=== PATIENT | female | born 1985 | race African-American/Black ===

== ENCOUNTER 2016-09-15 14:14 | Emergency (ER) | payer SELFPAY ==
--- NOTE | 2016-09-15 14:38 | ER Document Report ---
ED Medical Screen (RME) - General Stated Complaint: ABDOMINAL PAIN Mode of Arrival: Ambulatory Information source: Patient Notes: 30 y/o F presents to ED c/o lower abd/pelvic cramping, urinary frequency, and lower back pain intermittently over the last 2 weeks. States LMP was 08/13/16 and is usually regular. Denies fever, dysuria or vaginal discharge. TRAVEL OUTSIDE OF THE [place] IN LAST 30 DAYS: No - Related Data Allergies/Adverse Reactions: iodine [Iodine] Allergy (Verified 04/23/15 12:44) latex [Latex] Allergy (Verified 04/23/15 12:44) Past Medical History - Past Medical History Cardiac Medical History: Denies: Hx Coronary Artery Disease, Hx Heart Attack, Hx Hypertension Pulmonary Medical History: Denies: Hx Asthma, Hx Bronchitis, Hx COPD, Hx Pneumonia Neurological Medical History: Denies: Hx Cerebrovascular Accident, Hx Seizures Musculoskeltal Medical History: Denies Hx Arthritis - Immunizations Immunizations up to date: Yes Hx Diphtheria, Pertussis, Tetanus Vaccination: No Physical Exam - General General appearance: Appears well, Alert In distress: None - Respiratory Respiratory status: No respiratory distress
[2016-09-15 15:13] LABS: AMORPHOUS SEDIMENT,URINE TRACE /HPF; APPEARANCE,URINE CLOUDY; BILIRUBIN,URINE NEGATIVE (NEGATIVE); GLUCOSE, URINE NEGATIVE (NEGATIVE); KETONES,URINE TRACE mg/dL (NEGATIVE); LEUKOCYTE ESTERASE,URINE NEGATIVE (NEGATIVE); NITRITE,URINE NEGATIVE (NEGATIVE); PROTEIN,URINE NEGATIVE (NEGATIVE); URINE SPECIFIC GRAVITY 1.011
--- NOTE | 2016-09-15 15:53 | ER Document Report ---
ED GI/ - General Chief Complaint: Abdominal Pain Stated Complaint: ABDOMINAL PAIN Mode of Arrival: Ambulatory Information source: Patient Notes: Patient reports that she is currently a week late on her menstrual cycle. Patient does report some urinary frequency but denies any dysuria. Patient denies any vaginal discharge. Patient does report lower pelvic cramping and low back pain. Patient does report recent new sexual partner. Patient is concerned that she may be . TRAVEL OUTSIDE OF THE [place] IN LAST 30 DAYS: No - HPI Patient complains to provider of: Pelvic pain. No: Urinary retention, Vaginal bleeding, Vaginal discharge Onset: Other - Late on menstrual cycle 1 week Quality of pain: Cramping Pain Level: 2 Location: Pelvis Vaginal bleeding (Compared to normal period): None Sexual history: Active, New partner, Unprotected intercourse Associated symptoms: Urinary frequency. denies: Dysuria, Fever, Loss of appetite, Nausea, Urinary hesitancy Exacerbated by: Denies Relieved by: Denies Similar symptoms previously: No - Related Data Allergies/Adverse Reactions: iodine [Iodine] Allergy (Verified 09/15/16 14:36) latex [Latex] Allergy (Verified 09/15/16 14:36) Past Medical History - General Information source: Patient Last Menstrual Period: 08/13/2016 - Social History Smoking Status: Never Smoker Chew tobacco use (# tins/day): No Frequency of alcohol use: None Drug Abuse: None Occupation: [employer] Family History: Reviewed & Not Pertinent Patient has suicidal ideation: No Patient has homicidal ideation: No - Medical History Medical History: Negative - Past Medical History Cardiac Medical History: Denies: Hx Coronary Artery Disease, Hx Heart Attack, Hx Hypertension Pulmonary Medical History: Denies: Hx Asthma, Hx Bronchitis, Hx COPD, Hx Pneumonia Neurological Medical History: Denies: Hx Cerebrovascular Accident, Hx Seizures Renal/ Medical History: Denies: Hx Peritoneal Dialysis Musculoskeltal Medical History: Denies Hx Arthritis Past Surgical History: Reports: Hx Dilation and Curettage - Immunizations Immunizations up to date: Yes Hx Diphtheria, Pertussis, Tetanus Vaccination: No Review of Systems - Review of Systems Constitutional: No symptoms reported. denies: Diaphoresis, Fever EENT: No symptoms reported Cardiovascular: No symptoms reported Respiratory: No symptoms reported Gastrointestinal: Abdominal pain - Lower pelvic. denies: Vomiting Genitourinary: Frequency. denies: Dysuria Female Genitourinary: Irregular period. denies: Vaginal discharge, Vaginal bleeding Musculoskeletal: Back pain Skin: No symptoms reported Hematologic/Lymphatic: No symptoms reported Neurological/Psychological: No symptoms reported Physical Exam - General General appearance: Appears well, Alert In distress: None - HEENT Head: Normocephalic, Atraumatic Eyes: Normal Nasal: Normal Mouth/Lips: Normal Mucous membranes: Normal Neck: Normal, Supple. No: Lymphadenopathy - Respiratory Respiratory status: No respiratory distress Chest status: Nontender Breath sounds: Normal. No: Rales, Rhonchi, Stridor, Wheezing Chest palpation: Normal - Cardiovascular Rhythm: Regular Heart sounds: S1 appreciated, S2 appreciated Murmur: No - Abdominal Inspection: Normal Distension: No distension Bowel sounds: Normal Tenderness: Tender - Lower pelvic Organomegaly: No organomegaly - Genitourinary External exam: Normal Speculum exam: Cervix closed. No: Vaginal discharge Vaginal bleeding: Mild Bimanuel exam: Other - mild uterine tenderness. No: Adnexal mass - Back Back: Normal, Nontender. No: CVA tenderness, Vertebra tenderness - Extremities General upper extremity: Normal inspection, Normal ROM General lower extremity: Normal inspection, Normal ROM - Neurological Neuro grossly intact: Yes Cognition: Normal Sharif Coma Scale Eye Opening: Spontaneous Cora Coma Scale Verbal: Oriented Cora Coma Scale Motor: Obeys Commands Sharif Coma Scale Total: 15 - Psychological Associated symptoms: Normal affect, Normal mood - Skin Skin Temperature: Warm Skin Moisture: Dry Skin Color: Normal Course - Laboratory Laboratory results interpreted by me: 09/15/16 14:40 Urine Ketones TRACE H Urine Urobilinogen 2.0 H Urine Ascorbic Acid 20 H 09/15/16 18:13 Labs- Entire Visit 09/15/16 09/15/16 09/15/16 14:40 16:10 16:10 Urine Color YELLOW Urine Appearance CLOUDY Urine pH 7.0 Ur Specific [place] 1.011 Urine Protein NEGATIVE Urine Glucose (UA) NEGATIVE Urine Ketones TRACE H Urine Blood NEGATIVE Urine Nitrite NEGATIVE Urine Bilirubin NEGATIVE Urine Urobilinogen 2.0 H Ur Leukocyte Esterase NEGATIVE Urine WBC (Auto) 0 Urine RBC (Auto) 3 Squamous Epi Cells Auto 3 Amorphous Sediment Auto TRACE Urine Mucus (Auto) RARE Urine Ascorbic Acid 20 H Urine HCG, Qual NEGATIVE Bacteria (Wet Prep) 3+ BACTERIA SEEN Trichomonas (Wet Prep) NO TRICHOMONAS SEEN Vaginal WBC FEW WBCS SEEN Vaginal RBC 3+ RBCS SEEN Vaginal Yeast NO YEAST SEEN Chlamydia DNA (PCR) NOT DETECTED N.gonorrhoeae DNA (PCR) NOT DETECTED Discharge - Discharge Clinical Impression: Dysmenorrhea Condition: Stable Disposition: HOME, SELF-CARE Instructions: Anti-Inflammatory Medication ([facility]), Dysmenorrhea ([facility]) Additional Instructions: Return immediately for any new or worsening symptoms Followup with your primary care provider, call tomorrow to make a followup appointment Cultures are pending, we will call if you need any different treatment Prescriptions: Fluconazole [Diflucan] 150 mg PO ONCE PRN #1 tablet PRN Reason: Naproxen [Naprosyn 250 Nmg Tablet] 1 tab PO BID #14 tablet Forms: Return to Work Referrals: [facility] [Provider Group] - Follow up as needed
[2016-09-15] MEDS ORDERED: AZITHROMYCIN 250 MG TABLET PO ONE (16:13)
[2016-09-15] MEDS ORDERED: LIDOCAINE 1% INJ-PF (10 MG/ML) 30 ML SDV INJ ONE (16:13)
[2016-09-15] MEDS ORDERED: CEFTRIAXONE INJ 250 MG VIAL IM ONE (16:13)
[2016-09-15] MEDS ORDERED: ONDANSETRON 4 MG TAB.RAPDIS PO ONE (16:52)
[2016-09-15 17:56] LABS: CHLAM PCR NOT DETECTED (NOT DETECT)
== END 2016-09-15 17:00 | disposition home or self-care (01) ==
LOC: ER 14:14
DX: N94.6 Dysmenorrhea, unspecified (principal); R10.9 Unspecified abdominal pain; R35.0 Frequency of micturition; R10.2 Pelvic and perineal pain; M54.5 Low back pain
CPT/HCPCS: 99284; 96372; 87210; 81025; 81001; 87491; 87591; S0119; J3490; J0696

== ENCOUNTER 2016-10-13 13:12 | Emergency (ER) | payer SELFPAY ==
[2016-10-13 13:34] VITALS: BP 113/72
--- NOTE | 2016-10-13 13:55 | ER Document Report ---
ED Medical Screen (RME) - General Stated Complaint: ABDOMINAL PAIN Mode of Arrival: Ambulatory Information source: Patient Notes: She presents with vaginal discharge swelling for one week that smells funny.. Also rlq pain for 3-4 days and BANERJEE Thursday. Denies f/v/d. Denies pmh. Pt reports eating/drinking ok I have greeted and performed a rapid initial assessment of this patient. A comprehensive ED assessment and evaluation of the patient, analysis of test results and completion of the medical decision making process will be conducted by additional ED providers. TRAVEL OUTSIDE OF THE [place] IN LAST 30 DAYS: No - Related Data Allergies/Adverse Reactions: iodine [Iodine] Allergy (Verified 10/13/16 13:54) latex [Latex] Allergy (Verified 10/13/16 13:54) Past Medical History - Past Medical History Cardiac Medical History: Denies: Hx Coronary Artery Disease, Hx Heart Attack, Hx Hypertension Pulmonary Medical History: Denies: Hx Asthma, Hx Bronchitis, Hx COPD, Hx Pneumonia Neurological Medical History: Denies: Hx Cerebrovascular Accident, Hx Seizures Renal/ Medical History: Denies: Hx Peritoneal Dialysis Musculoskeltal Medical History: Denies Hx Arthritis Past Surgical History: Reports: Hx Dilation and Curettage, Hx Tubal Ligation - Immunizations Immunizations up to date: Yes Hx Diphtheria, Pertussis, Tetanus Vaccination: No Physical Exam - Vital signs Vitals: Temp Pulse Resp BP Pulse Ox 98.6 F 85 16 113/72 99 10/13/16 13:32 10/13/16 13:32 10/13/16 13:32 10/13/16 13:32 10/13/16 13:32 Course - Vital Signs Vital signs: Temp Pulse Resp BP Pulse Ox 98.6 F 85 16 113/72 99 10/13/16 13:32 10/13/16 13:32 10/13/16 13:32 10/13/16 13:32 10/13/16 13:32
[2016-10-13 14:56] LABS: ABSOLUTE BASOPHILS # (AUTO) 0.1 10^3/uL (0.0-0.2); ABSOLUTE EOSINOPHILS # (AUTO) 0.2 10^3/uL (0.0-0.6); ABSOLUTE MONOCYTES (AUTO) 0.5 10^3/uL (0.1-1.4); ABSOLUTE NEUT (AUTO) 2.9 10^3/uL (1.7-8.2); BASOPHILS % (AUTO) 1.3 % (0-2); EOSINOPHILS % (AUTO) 3.3 % (0-6); HEMATOCRIT 39.5 % (36.0-47.0); HEMOGLOBIN 13.4 g/dL (12.0-15.5); HGB HCT DIFFERENCE 0.7; LYMPHOCYTES % (AUTO) 22.3 % (13-45); MEAN CORPUSCULAR HEMOGLOBIN 32.7 pg (27.0-33.4); MEAN CORPUSCULAR HGB CONC 33.9 g/dL (32.0-36.0); MEAN CORPUSCULAR VOLUME 96 fl (80-97); MONOCYTES % (AUTO) 10.9 % (3-13); RED CELL DISTRIBUTION WIDTH 12.7 % (11.5-14.0); SEGMENTED NEUTROPHILS % (AUTO) 62.2 % (42-78); WHITE BLOOD COUNT 4.6 10^3/uL (4.0-10.5)
[2016-10-13 15:03] LABS: APPEARANCE,URINE SLIGHTLY-CLOUDY; BILIRUBIN,URINE NEGATIVE (NEGATIVE); GLUCOSE, URINE NEGATIVE (NEGATIVE); KETONES,URINE 20 mg/dL (NEGATIVE); LEUKOCYTE ESTERASE,URINE NEGATIVE (NEGATIVE); NITRITE,URINE NEGATIVE (NEGATIVE); PROTEIN,URINE NEGATIVE (NEGATIVE); URINE SPECIFIC GRAVITY 1.023; UROBILINOGEN,URINE NEGATIVE mg/dL (<2.0)
[2016-10-13 15:23] LABS: ALANINE AMINOTRANSFERASE 26 U/L (9-52); ALBUMIN 4.7 g/dL (3.5-5.0); ALKALINE PHOSPHATASE 44 U/L (38-126); ANION GAP 13 (5-19); ASPARTATE AMINO TRANSFERASE 24 U/L (14-36); BILIRUBIN,DIRECT 0.1 mg/dL (0.0-0.4); BILIRUBIN,TOTAL 0.8 mg/dL (0.2-1.3); BLOOD UREA NITROGEN 9 mg/dL (7-20); CALCIUM 10.1 mg/dL (8.4-10.2); CARBON DIOXIDE 28 mmol/L (22-30); CHLORIDE 103 mmol/L (98-107); CREATININE RESULT 0.63 mg/dL (0.52-1.25); GLUCOSE 104 mg/dL (75-110); POTASSIUM 3.9 mmol/L (3.6-5.0); SODIUM 144.2 mmol/L (137-145); TOTAL PROTEIN 7.6 g/dL (6.3-8.2)
--- NOTE | 2016-10-13 16:22 | ER Document Report ---
ED GI/ - General Chief Complaint: Vaginal Discharge Stated Complaint: ABDOMINAL PAIN Mode of Arrival: Ambulatory Notes: Patient is a 30-year-old female presents emergency Department complaining of vaginal discharge for one week. Patient states that it is thick, white discharge with occasional fishy odor. Patient states that she is having unprotected sex with a boyfriend but she is concerned that he is cheating on her. She would like to be evaluated for an STD today as well. Patient states that she does have a history of yeast infections but this one is different in terms of odor. Patient LMP was Sep 15 2016. Today she admits to pubic pain worse during intercourse. She denies any vaginal itching, burning, pyuria, dysuria, hematuria, urinary frequency or urgency. Denies any past medical or past surgical history. TRAVEL OUTSIDE OF THE [place] IN LAST 30 DAYS: No - Related Data Allergies/Adverse Reactions: iodine [Iodine] Allergy (Verified 10/13/16 13:54) latex [Latex] Allergy (Verified 10/13/16 13:54) Past Medical History - General Information source: Patient - Social History Smoking Status: Never Smoker Family History: Reviewed & Not Pertinent Patient has suicidal ideation: No Patient has homicidal ideation: No - Past Medical History Cardiac Medical History: Denies: Hx Coronary Artery Disease, Hx Heart Attack, Hx Hypertension Pulmonary Medical History: Denies: Hx Asthma, Hx Bronchitis, Hx COPD, Hx Pneumonia Neurological Medical History: Denies: Hx Cerebrovascular Accident, Hx Seizures Renal/ Medical History: Denies: Hx Peritoneal Dialysis Musculoskeltal Medical History: Denies Hx Arthritis Past Surgical History: Reports: Hx Dilation and Curettage, Hx Tubal Ligation - Immunizations Immunizations up to date: Yes Hx Diphtheria, Pertussis, Tetanus Vaccination: No Review of Systems - Review of Systems Constitutional: No symptoms reported Gastrointestinal: No symptoms reported Genitourinary: See HPI Female Genitourinary: See HPI Musculoskeletal: No symptoms reported -: Yes All other systems reviewed and negative Physical Exam - Vital signs Vitals: Temp Pulse Resp BP Pulse Ox 98.6 F 85 16 113/72 99 10/13/16 13:32 10/13/16 13:32 10/13/16 13:32 10/13/16 13:32 10/13/16 13:32 - Notes Notes: PHYSICAL EXAM GENERAL: Alert, interacts well. HEAD: Normocephalic, atraumatic. EYES: Pupils equal, round, and reactive to light. Extraocular movements intact. ENT: Oral mucosa moist, tongue midline. NECK: Full range of motion. Supple. Trachea midline. LUNGS: Clear to auscultation bilaterally, no wheezes, rales, or rhonchi. No respiratory distress. HEART: Regular rate and rhythm. No murmurs, gallops, or rubs. ABDOMEN: Soft, nondistended, nontender. No guarding, rebound, or rigidity.. Bowel sounds present in all 4 quadrants. FEMALE : Normal external exam. No evidence of lesions, lacerations, bruising or vesicles. Speculum exam normal cervix closed. Moderate vaginal discharge with odor. No evidence of lesions. No vaginal bleeding. Bimanual exam normal no cervical motion tenderness. No adnexal mass or adnexal tenderness. EXTREMITIES: Moves all 4 extremities spontaneously. No edema, radial and dorsalis pedis pulses 2/4 bilaterally. No cyanosis. NEUROLOGICAL: Alert and oriented x4. Normal speech. PSYCH: Normal affect, normal mood. SKIN: Warm, dry, normal turgor. No rashes or lesions noted. Course - Re-evaluation Re-evalutation: 10/13/16 22:53 Patient is a 30-year-old female sits emergency department vaginal discharge. Wet mount shows bacteria no evidence of trichomonas or yeast, negative for chlamydia and gonorrhea. Patient was discharged home with by mouth antibiotics for bacterial vaginosis and instruction to follow up with [employer]. - Vital Signs Vital signs: Temp Pulse Resp BP Pulse Ox 98.6 F 85 16 113/72 99 10/13/16 13:32 10/13/16 13:32 10/13/16 13:32 10/13/16 13:32 10/13/16 13:32 - Laboratory Result Diagrams: 10/13/16 14:40 10/13/16 14:40 Laboratory results interpreted by me: 10/13/16 14:40 Urine Ketones 20 H Urine Ascorbic Acid 40 H Discharge - Discharge Clinical Impression: Vaginal discharge Condition: Good Disposition: HOME, SELF-CARE Additional Instructions: VAGINITIS: Your exam shows that you have vaginitis, a vaginal infection. The infection can be caused by a many different organisms, including trichomonas or Gardnerella. The usual symptoms are vaginal irritation and discharge. The treatment is usually antibiotics such as Flagyl. Laboratory tests can determine which germ is responsible. Use the medication as prescribed. Because this infection can be transmitted sexually, your sexual partner may need to be checked and treated also. If your physician has not discussed this with you, please check before resuming sexual relations. If a culture shows gonorrhea or chlamydia, the infection must be reported to the health department. Call the doctor if you develop pelvic pain, fever, or problems with urination, or if you don't improve as expected. VAGINOSIS, BACTERIAL: Your exam shows you have bacterial vaginosis. This condition is due to an overgrowth of bacteria in the vagina. Symptoms may include vaginal itching or pain, a smelly discharge, and sometimes burning with urination. Normally this is not transmitted by sexual contact. Vaginosis can be treated with oral or topical antibiotics. Metronidazole ( Flagyl) pills are usually effective. Topical vaginal creams include Cleocin and Metro-Gel. You should avoid sexual contact until your symptoms are all better. Call the doctor if you develop pelvic pain, fever, or problems with urination, or if you don't improve as expected. ANTIBIOTIC THERAPY: You have been given an antibiotic prescription. It's important that you take all the medication, unless instructed otherwise by your physician. Failure to complete the entire course can result in relapse of your condition. Common side effects of antibiotics include nausea, intestinal cramping, or diarrhea. Women may develop vaginal yeast infections, and babies can get yeast (thrush) in the mouth following the use of antibiotics. Contact your physician if you develop significant side effects from this medication. Allergy to this antibiotic can result in hives, wheezing, faintness, or itching. If symptoms of allergy occur, stop the medication and call the doctor. METRONIDAZOLE: Metronidazole (Flagyl) has been prescribed. This medication is used to kill a type of bacteria called anaerobes, and protozoan parasites such as trichomonas and Giardia. Flagyl often causes a metallic taste in the mouth and mild nausea. Do not use alcohol in any form with Flagyl (including alcohol in medication elixirs). Flagyl interacts with alcohol to cause flushing, palpitations, headache, stomach cramps, and vomiting. Do not use Flagyl if you are taking Antabuse (disulfiram). Call the doctor at once if you develop rash, shortness of breath, itching, or lightheadedness. FOLLOW-UP CARE: If you have been referred to a physician for follow-up care, call the physician s office for an appointment as you were instructed or within the next two days. If you experience worsening or a significant change in your symptoms, notify the physician immediately or return to the Emergency Department at any time for re-evaluation. Prescriptions: Metronidazole [Flagyl 500 mg Tablet] 500 mg PO BID #14 tablet Referrals: JASE VARELA MD [ACTIVE STAFF] - Follow up as needed
[2016-10-13 18:04] LABS: CHLAM PCR NOT DETECTED (NOT DETECT)
== END 2016-10-13 17:21 | disposition home or self-care (01) ==
LOC: ER 13:12
DX: N76.0 Acute vaginitis (principal); B96.89 Other specified bacterial agents as the cause of diseases classified elsewhere; Z91.040 Latex allergy status
CPT/HCPCS: 36415; 80053; 81001; 84703; 85025; 87210; 87491; 87591; 99283

== ENCOUNTER 2016-10-25 15:24 | Emergency (ER) | payer SELFPAY ==
[2016-10-25 15:34] VITALS: BP 116/67
--- NOTE | 2016-10-25 16:25 | ER Document Report ---
ED General - General Chief Complaint: Other Stated Complaint: SORES ON LIPS Mode of Arrival: Ambulatory Information source: Patient Notes: Patient is 30 year old female who presents with sores to her right side of bottom lip. She states that started yesterday but denies any drainage or bleeding from them. She reports history of the same 2 years ago and was treated with anti-viral cream which made completely cleared it in one day. She endorses recent abx use for bacterial vaginosis. TRAVEL OUTSIDE OF THE [place] IN LAST 30 DAYS: No - Related Data Allergies/Adverse Reactions: iodine [Iodine] Allergy (Verified 10/25/16 15:33) latex [Latex] Allergy (Verified 10/25/16 15:33) Past Medical History - Social History Smoking Status: Unknown if Ever Smoked Family History: Reviewed & Not Pertinent Patient has suicidal ideation: No Patient has homicidal ideation: No - Past Medical History Cardiac Medical History: Denies: Hx Coronary Artery Disease, Hx Heart Attack, Hx Hypertension Pulmonary Medical History: Denies: Hx Asthma, Hx Bronchitis, Hx COPD, Hx Pneumonia Neurological Medical History: Denies: Hx Cerebrovascular Accident, Hx Seizures Renal/ Medical History: Denies: Hx Peritoneal Dialysis Musculoskeltal Medical History: Denies Hx Arthritis Past Surgical History: Reports: Hx Dilation and Curettage, Hx Tubal Ligation - Immunizations Immunizations up to date: Yes Hx Diphtheria, Pertussis, Tetanus Vaccination: No Review of Systems - Review of Systems Constitutional: See HPI EENT: See HPI Cardiovascular: No symptoms reported Respiratory: No symptoms reported Gastrointestinal: No symptoms reported Genitourinary: No symptoms reported Female Genitourinary: No symptoms reported Musculoskeletal: No symptoms reported Skin: No symptoms reported Hematologic/Lymphatic: No symptoms reported Neurological/Psychological: No symptoms reported Physical Exam - Vital signs Vitals: Temp Pulse Resp BP Pulse Ox 98.2 F 79 16 116/67 98 10/25/16 15:33 10/25/16 15:33 10/25/16 15:33 10/25/16 15:33 10/25/16 15:33 Interpretation: Normal - Notes Notes: PHYSICAL EXAM: CONSTITUTIONAL: Alert and oriented, well-appearing and in no acute distress. HENT: Normocephalic, atraumatic. Oropharynx clear without erythema, tonsilar exudate or malocclusion. Trachea midline. Uvula midline. Moist mucous membranes. 2 oval ulcers with latham base noted to lower lip consistent with aphthous ulcers. EYES: Pupils equal round and reactive to light, EOM intact. Sclera anicteric, conjunctiva are normal. No entrapment. NECK: supple without lymphadenopathy. ROM intact. HEART: Regular rate and rhythm without murmurs. LUNGS: CTAB and equal. No wheezes, rales or rhonchi. EXTREMITIES: Normal range of motion, no pitting edema. No cyanosis. Cap Refill < 3 seconds. SKIN: Warm and dry. Normal turgor. No rashes or lesions noted. Course - Re-evaluation Re-evalutation: 10/25/16 16:20 Patient seen and examined. No respiratory distress, no angioedema, patient speaking in full sentences without difficulty. Exam consistent with aphthous ulcers. Will treat with valacyclovir. At this time, will discharge with return precautions and follow-up recommendations. Verbal discharge instructions given at the bedside and opportunity for questions given. Medication warnings reviewed. Patient is in agreement with this plan and has verbalized understanding of return precautions and the need for primary care follow-up in the next 24-72 hours. - Vital Signs Vital signs: Temp Pulse Resp BP Pulse Ox 98.2 F 79 16 116/67 98 10/25/16 15:33 10/25/16 15:33 10/25/16 15:33 10/25/16 15:33 10/25/16 15:33 Discharge - Discharge Clinical Impression: Cold sore Condition: Good Disposition: HOME, SELF-CARE Additional Instructions: Mouth Sores Sores in the mouth can have a variety of causes. They can occur due to allergy, infection, injury, or medicine side effects. When due to infection by a virus (aphthous stomatitis), the sores are contagious. More ulcerations will appear over a few days, and complete healing may take 10 to 14 days. Treatment usually is just local care to decrease discomfort. Antibiotics are not helpful in most cases. Local anesthetic gels or sprays (Anbesol, Orajel, Chloraseptic) may be used. If the pain is severe, stronger topical medication can be prescribed. Where sensitivity to food is suspected as a possible cause, cortisone medication may be prescribed in a special oral preparation. Occasionally, a sore may require cauterization to control the pain. Call the doctor or return at once if you develop major swelling or increasing pain, or you feel increasingly ill. Prescriptions: Valacyclovir HCl [Valacyclovir] 2 g PO Q12H #4 tablet
== END 2016-10-25 16:30 | disposition home or self-care (01) ==
LOC: ER 15:24
DX: B00.1 Herpesviral vesicular dermatitis (principal); Z91.040 Latex allergy status
CPT/HCPCS: 99283

== ENCOUNTER 2016-12-01 13:26 | Emergency (ER) | payer SELFPAY ==
[2016-12-01 13:50] VITALS: BP 120/70
--- NOTE | 2016-12-01 14:18 | ER Document Report ---
ED Medical Screen (RME) - General Mode of Arrival: Ambulatory Information source: Patient TRAVEL OUTSIDE OF THE [place] IN LAST 30 DAYS: No - HPI Similar symptoms previously: No Recently seen / treated by doctor: No - General Chief Complaint: Vaginal Pain Stated Complaint: VAGINAL SWELLING, PAIN Time Seen by Provider: 12/01/16 14:12 Notes: Pt presents today with complaints of vaginal discomfort beginning three days ago. Pt complains of labia swelling as well. Pt states she feels like it is "swollen down there, it feels like there are cuts down there but there aren't". Pt states she thought it was a yeast infection, but Monistat seemed to make her symptoms worse. (TAMIR KIRKPATRICK) - Related Data Allergies/Adverse Reactions: iodine [Iodine] Allergy (Verified 12/01/16 13:46) latex [Latex] Allergy (Verified 12/01/16 13:46) Past Medical History - Past Medical History Cardiac Medical History: Denies: Hx Coronary Artery Disease, Hx Heart Attack, Hx Hypertension Pulmonary Medical History: Denies: Hx Asthma, Hx Bronchitis, Hx COPD, Hx Pneumonia Neurological Medical History: Denies: Hx Cerebrovascular Accident, Hx Seizures Renal/ Medical History: Denies: Hx Peritoneal Dialysis Musculoskeltal Medical History: Denies Hx Arthritis Past Surgical History: Reports: Hx Dilation and Curettage, Hx Tubal Ligation - Immunizations Immunizations up to date: Yes Hx Diphtheria, Pertussis, Tetanus Vaccination: No Review of Systems - Review of Systems Female Genitourinary: See HPI, Other - vaginal irritation Physical Exam - Respiratory Respiratory status: No respiratory distress - Abdominal Inspection: Normal Tenderness: Nontender Course - Re-evaluation Re-evalutation: 12/01/16 14:43 I personally performed the services described in the documentation, reviewed and edited the documentation which was dictated to the scribe in my presence, and it accurately records my words and actions. (ARIS CAMARENA) - Vital Signs Vital signs: Temp Pulse Resp BP Pulse Ox 98.9 F 91 18 120/70 97 12/01/16 13:46 12/01/16 13:46 12/01/16 13:46 12/01/16 13:46 12/01/16 13:46 Scribe Documentation - Scribe Written by Scribe:: Collette Rock, 12/01/2016 1433 acting as scribe for :: Shiela
[2016-12-01 15:00] LABS: APPEARANCE,URINE CLEAR; BILIRUBIN,URINE NEGATIVE (NEGATIVE); GLUCOSE, URINE NEGATIVE (NEGATIVE); KETONES,URINE NEGATIVE (NEGATIVE); LEUKOCYTE ESTERASE,URINE SMALL (NEGATIVE); NITRITE,URINE NEGATIVE (NEGATIVE); PROTEIN,URINE NEGATIVE (NEGATIVE); URINE SPECIFIC GRAVITY 1.026; UROBILINOGEN,URINE NEGATIVE mg/dL (<2.0)
[2016-12-01] MEDS ORDERED: FLUCONAZOLE 100 MG TABLET PO ONE (15:09)
--- NOTE | 2016-12-01 15:12 | ER Document Report ---
ED General - General Chief Complaint: Vaginal Pain Stated Complaint: VAGINAL SWELLING, PAIN Time Seen by Provider: 12/01/16 14:12 Mode of Arrival: Ambulatory Information source: Patient TRAVEL OUTSIDE OF THE [place] IN LAST 30 DAYS: No - HPI Notes: 30-year-old female presents with vaginal burning and itching and sensation of swelling. She had severe itching had been using multiple rounds of vinegar and water, Monistat 1, Azo pills and hemorrhoidal creams but has had continued burning and discharge for at least 3 or 4 days now. Denies abdominal pain or other symptoms otherwise. She does admit to scratching due to the pruritus and reports possible excoriations. No fever or urinary symptoms. - Related Data Allergies/Adverse Reactions: iodine [Iodine] Allergy (Verified 12/01/16 13:46) latex [Latex] Allergy (Verified 12/01/16 13:46) Past Medical History - General Information source: Patient - Social History Smoking Status: Current Every Day Smoker Chew tobacco use (# tins/day): No Frequency of alcohol use: None Drug Abuse: None Family History: Reviewed & Not Pertinent Patient has suicidal ideation: No Patient has homicidal ideation: No - Past Medical History Cardiac Medical History: Denies: Hx Coronary Artery Disease, Hx Heart Attack, Hx Hypertension Pulmonary Medical History: Denies: Hx Asthma, Hx Bronchitis, Hx COPD, Hx Pneumonia Neurological Medical History: Denies: Hx Cerebrovascular Accident, Hx Seizures Renal/ Medical History: Denies: Hx Peritoneal Dialysis Musculoskeltal Medical History: Denies Hx Arthritis Past Surgical History: Reports: Hx Dilation and Curettage, Hx Tubal Ligation - Immunizations Immunizations up to date: Yes Hx Diphtheria, Pertussis, Tetanus Vaccination: No Review of Systems - Review of Systems -: Yes All other systems reviewed and negative Physical Exam - Vital signs Vitals: Temp Pulse Resp BP Pulse Ox 98.9 F 91 18 120/70 97 12/01/16 13:46 12/01/16 13:46 12/01/16 13:46 12/01/16 13:46 12/01/16 13:46 - Notes Notes: GENERAL: VS as per nursing doc. Well-appearing, well-nourished and in no acute distress. HEAD: Atraumatic, normocephalic. EYES: Sclera anicteric, no conjunctival injection or discharge. ENT: Normal to inspection NECK: Normal range of motion. LUNGS: Breath sounds clear to auscultation bilaterally and equal. No wheezes rales or rhonchi. HEART: Regular rate and rhythm without murmurs. ABDOMEN: Soft, non-tender : No evidence of abscess external genitalia normal, mild labial edema and erythema with some adherent white discharge consistent with yeast, elastic attacher overlock used (Marlene) EXTREMITIES: No edema. NEUROLOGICAL: No gross deficits PSYCH: Normal mood, normal affect. SKIN: Warm, dry, normal turgor, no lesions noted. Course - Vital Signs Vital signs: Temp Pulse Resp BP Pulse Ox 98.9 F 91 18 120/70 97 12/01/16 13:46 12/01/16 13:46 12/01/16 13:46 12/01/16 13:46 12/01/16 13:46 - Laboratory Laboratory results interpreted by me: 12/01/16 14:35 Ur Leukocyte Esterase SMALL H Urine Ascorbic Acid 20 H Discharge - Discharge Clinical Impression: Vaginitis Condition: Good Disposition: HOME, SELF-CARE Instructions: Vaginitis ([facility]) Additional Instructions: Follow up with your primary care physician for recheck. Forms: Smoking Cessation Education
== END 2016-12-01 15:40 | disposition home or self-care (01) ==
LOC: ER 13:26
DX: N76.0 Acute vaginitis (principal); R10.2 Pelvic and perineal pain; F17.200 Nicotine dependence, unspecified, uncomplicated; Z91.040 Latex allergy status; Z98.51 Tubal ligation status
CPT/HCPCS: 81001; 81025; 99283

== ENCOUNTER 2016-12-02 11:39 | Emergency (ER) | payer SELFPAY ==
--- NOTE | 2016-12-02 12:12 | ER Document Report ---
ED Medical Screen (RME) - General Chief Complaint: Vaginal Discharge Stated Complaint: BURN WITH URINATION Time Seen by Provider: 12/02/16 12:07 Mode of Arrival: Ambulatory Information source: Patient Notes: 30-year-old female with the onset around 5 days ago of some vaginal irritation white discharge. She denies any nausea, vomiting, or fevers. She was seen and evaluated here with a negative test without a pelvic examination performed and started on antifungal treatment. Patient states that she feels that she is "more inflamed" than previously. TRAVEL OUTSIDE OF THE [place] IN LAST 30 DAYS: No - Related Data Allergies/Adverse Reactions: iodine [Iodine] Allergy (Verified 12/02/16 11:51) latex [Latex] Allergy (Verified 12/02/16 11:51) Past Medical History - Past Medical History Cardiac Medical History: Denies: Hx Coronary Artery Disease, Hx Heart Attack, Hx Hypertension Pulmonary Medical History: Denies: Hx Asthma, Hx Bronchitis, Hx COPD, Hx Pneumonia Neurological Medical History: Denies: Hx Cerebrovascular Accident, Hx Seizures Renal/ Medical History: Denies: Hx Peritoneal Dialysis Musculoskeltal Medical History: Denies Hx Arthritis Past Surgical History: Reports: Hx Dilation and Curettage, Hx Tubal Ligation - Immunizations Immunizations up to date: Yes Hx Diphtheria, Pertussis, Tetanus Vaccination: No Physical Exam - Vital signs Vitals: Temp Pulse Resp BP Pulse Ox 98.5 F 78 18 117/66 98 12/02/16 11:53 12/02/16 11:53 12/02/16 11:53 12/02/16 11:53 12/02/16 11:53 Course - Vital Signs Vital signs: Temp Pulse Resp BP Pulse Ox 98.5 F 78 18 117/66 98 12/02/16 11:53 12/02/16 11:53 12/02/16 11:53 12/02/16 11:53 12/02/16 11:53
[2016-12-02] MEDS ORDERED: IBUPROFEN 800 MG TABLET PO ONE (12:38)
--- NOTE | 2016-12-02 12:38 | ER Document Report ---
ED GI/ - General Chief Complaint: Vaginal Discharge Stated Complaint: BURN WITH URINATION Time Seen by Provider: 12/02/16 12:07 Mode of Arrival: Ambulatory Information source: Patient Notes: 30-year-old female presents to ED for vaginal irritation with white discharge and pelvic discomfort for 5 days. She denies any nausea vomiting or fever. She was seen here yesterday and had a negative urine negative test and treated with antifungal medications yesterday patient states she feels worse today than yesterday. Patient has a history of a tubal on the right which they removed a tubal and tied the right tube she states she was told at the time that her left tube was then developed been nonfunctional TRAVEL OUTSIDE OF THE [place] IN LAST 30 DAYS: No - HPI Patient complains to provider of: Pelvic pain, Vaginal discharge Onset: Other - 5 days Timing/Duration: Gradual, Worse Quality of pain: Burning, Pressure, Sharp Severity at maximum: Severe Severity in ED: Severe Pain Level: 5 Location: Pelvis - Right, Vaginal, Other - Vaginal discharge thick white clumpy Vaginal bleeding (Compared to normal period): None Associated symptoms: Vaginal discharge, Other - Pelvic pain worse to right small lump noted on right pelvic area Exacerbated by: Denies Relieved by: Denies Similar symptoms previously: Yes Recently seen / treated by doctor: Yes - Related Data Allergies/Adverse Reactions: iodine [Iodine] Allergy (Verified 12/02/16 11:51) latex [Latex] Allergy (Verified 12/02/16 11:51) Past Medical History - General Information source: Patient - Social History Smoking Status: Former Smoker Cigarette use (# per day): No Chew tobacco use (# tins/day): No Smoking Education Provided: No Frequency of alcohol use: None Drug Abuse: None 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 Lives with: Friend Family History: DM - Her twin sister, Hypertension - Her twin sister, Thyroid Disfunction - Her twin sister, Other - Seizures her twin sister - Past Medical History Cardiac Medical History: Reports: None Pulmonary Medical History: Reports: None EENT Medical History: Reports: None Neurological Medical History: Reports: None Endocrine Medical History: Reports: None Renal/ Medical History: Reports: Hx Ectopic Malignancy Medical History: Reports: None GI Medical History: Reports: None Musculoskeltal Medical History: Reports None Skin Medical History: Reports None Psychiatric Medical History: Reports: None Traumatic Medical History: Reports: None Infectious Medical History: Reports: None Past Surgical History: Reports: Hx Dilation and Curettage - Tubal , Hx Tubal Ligation - Immunizations Immunizations up to date: Yes Hx Diphtheria, Pertussis, Tetanus Vaccination: No Review of Systems - Review of Systems Constitutional: No symptoms reported EENT: No symptoms reported Cardiovascular: No symptoms reported Respiratory: No symptoms reported Gastrointestinal: No symptoms reported Genitourinary: No symptoms reported Female Genitourinary: Vaginal discharge, Other - Pelvic pain worse on the right Musculoskeletal: No symptoms reported Skin: No symptoms reported Hematologic/Lymphatic: No symptoms reported Neurological/Psychological: No symptoms reported -: Yes All other systems reviewed and negative Physical Exam - Vital signs Vitals: Temp Pulse Resp BP Pulse Ox 98.5 F 78 18 117/66 98 12/02/16 11:53 12/02/16 11:53 12/02/16 11:53 12/02/16 11:53 12/02/16 11:53 Interpretation: Normal - General General appearance: Appears well, Alert - HEENT Head: Normocephalic, Atraumatic Eyes: Normal Pupils: PERRL - Respiratory Respiratory status: No respiratory distress Chest status: Nontender Breath sounds: Normal Chest palpation: Normal - Cardiovascular Rhythm: Regular Heart sounds: Normal auscultation Murmur: No - Abdominal Inspection: Normal Distension: No distension Bowel sounds: Normal Tenderness: Nontender Organomegaly: No organomegaly - Genitourinary External exam: Normal Speculum exam: Cervix closed, Vaginal discharge - Thick white clumpy, Other - Cervix is very friable Vaginal bleeding: None Bimanuel exam: Cervical motion tender, Adnexal tenderness - Worse on the right - Back Back: Normal, Nontender - Extremities General upper extremity: Normal inspection, Nontender, Normal color, Normal ROM , Normal temperature General lower extremity: Normal inspection, Nontender, Normal color, Normal ROM , Normal temperature, Normal weight bearing. No: Mria's sign - Neurological Neuro grossly intact: Yes Cognition: Normal Orientation: AAOx4 Stanley Coma Scale Eye Opening: Spontaneous Stanley Coma Scale Verbal: Oriented Sharif Coma Scale Motor: Obeys Commands Sharif Coma Scale Total: 15 Speech: Normal Motor strength normal: LUE, RUE, LLE, RLE Sensory: Normal - Psychological Associated symptoms: Normal affect, Normal mood - Skin Skin Temperature: Warm Skin Moisture: Dry Skin Color: Normal Course - Re-evaluation Re-evalutation: 12/02/16 22:09 Patient left before her ultrasound was read she states she needed to go to work. Patient was given a number to call for results. She did not call back. Ultrasound showed fibroids. Patient was treated for her bacterial vaginosis and yeast infection. She was also given azithromycin and Rocephin to cover GC and chlamydia because she left before those results have returned. She is to follow-up with an [employer] and her primary doctor. 12/02/16 22:13 patient just returned call results of the GC chlamydia and ultrasound discussed with patient. - Vital Signs Vital signs: Temp Pulse Resp BP Pulse Ox 98.9 F 81 18 121/70 99 12/02/16 15:16 12/02/16 15:16 12/02/16 11:53 12/02/16 15:16 12/02/16 15:16 - Diagnostic Test Radiology reviewed: Image reviewed, Reports reviewed Discharge - Discharge Clinical Impression: Bacterial vaginosis, Malaika vaginitis, Pelvic pain Condition: Stable Disposition: HOME, SELF-CARE Instructions: Family Physicians / Practices, [facility]-Assisted Living Home Director Doctors Additional Instructions: PELVIC PAIN: There are many causes of pain in the pelvic area. The cause could be the tubes, ovaries, uterus, intestines, appendix, pelvic muscles and connective tissue, or the urinary tract. The cause of your pelvic pain is not clear. However, it seems safe to treat you outside the hospital. If the pain sounds like a temporary problem, we sometimes wait to see if it goes away. Other patients may need additional tests, such as pelvic ultrasound or cultures. Conditions may change. Call us or come back for reexamination if any problems occur, such as: (1) Pain that becomes more severe, steady, or becomes concentrated in one specific area. Also, pain that is more severe with movement or coughing. (2) Vomiting that persists or becomes more frequent. (3) Blood in the vomitus, urine, or bowel movements. Blood in the stool may have a tarry or black appearance. (4) Shaking chills or fever greater than 100 degrees. (5) The abdomen becomes more distended or swollen. (6) Bowel movements cease. (7) Heavy vaginal bleeding. CEPHALOSPORINS: An antibiotic of the cephalosporin class has been prescribed. This type of antibiotic covers a wide variety of infections, including those of the skin, lungs, middle ear, and urinary tract. This antibiotic is somewhat similar to the penicillin family. In rare cases , a person who is allergic to penicillin will also be allergic to this medication. If you have had a severe allergic reaction to penicillin, and have not taken this antibiotic since that time, notify your doctor. Antibiotics which cover many germs ("broad spectrum" antibiotics) are more likely to cause diarrhea or "yeast" infections. Women prone to vaginal yeast problems may suffer an attack after taking this antibiotic. In infants, oral thrush (white spots "stuck" on the cheek) or yeast diaper rash may result. See your doctor if these problems occur. Call the doctor at once if you develop hives, itching, shortness of breath , or lightheadedness. AZITHROMYCIN: Azithromycin (Zithromax) is a broad spectrum antibiotic in the same class as erythromycin. It can treat a variety of bacterial infections, but is most frequently used for respiratory infections. Azithromycin is extremely long-lasting. It accumulates in body tissues and continues to kill bacteria for many days. In order to improve absorption, Azithromycin should be taken at least one hour before or two hours after a meal. It does not have the same strong tendency to upset the stomach as erythromycin and is usually very well tolerated. Patients who have had a rash or other true allergic reactions to erythromycin should not take this medication. Call if you develop gastrointestinal distress, severe diarrhea, rash, hives, itching, or shortness of breath. METRONIDAZOLE: Metronidazole (Flagyl) has been prescribed. This medication is used to kill a type of bacteria called anaerobes, and protozoan parasites such as trichomonas and Giardia. Flagyl often causes a metallic taste in the mouth and mild nausea. Do not use alcohol in any form with Flagyl (including alcohol in medication elixirs). Flagyl interacts with alcohol to cause flushing, palpitations, headache, stomach cramps, and vomiting. Do not use Flagyl if you are taking Antabuse (disulfiram). Call the doctor at once if you develop rash, shortness of breath, itching, or lightheadedness. Fluconazole Fluconazole (Diflucan) is an antifungal drug. It is useful for serious fungal infections, but is also excellent for oral or vaginal yeast infections. Diflucan interacts with some medicines. This is a concern if you are taking anticoagulants (such as Coumadin), phenytoin (Dilantin), cyclosporin, or oral hypoglycemics (such as tolbutamide, Orinase, glipizide, Glucotrol, glyburide, DiaBeta, Glynase, and Micronase). Be sure the doctor knows if you are taking one of these medicines. We don't know how Diflucan affects . If you are planning to become , discuss this with your doctor. Diflucan has few side effects. Minor side effects may include nausea, headache, or diarrhea. Call the doctor if you develop a skin rash, shortness of breath, or other new symptoms. FOLLOW-UP CARE: If you have been referred to a physician for follow-up care, call the physician s office for an appointment as you were instructed or within the next two days. If you experience worsening or a significant change in your symptoms, notify the physician immediately or return to the Emergency Department at any time for re-evaluation. Prescriptions: Fluconazole [Diflucan] 150 mg PO ONCE PRN #1 tablet PRN Reason: Metronidazole [Flagyl 500 mg Tablet] 500 mg PO BID #14 tablet Forms: Return to Work
[2016-12-02] MEDS ORDERED: METRONIDAZOLE 500 MG TABLET PO ONE (12:49)
[2016-12-02] MEDS ORDERED: AZITHROMYCIN 250 MG TABLET PO ONE (12:52)
[2016-12-02] MEDS ORDERED: CEFTRIAXONE INJ 250 MG VIAL IM ONE (12:52)
[2016-12-02] MEDS ORDERED: LIDOCAINE 1% INJ-PF (10 MG/ML) 30 ML SDV INJ ONE (12:52)
[2016-12-02 15:19] VITALS: BP 121/70
[2016-12-02 15:45] LABS: CHLAM PCR NOT DETECTED (NOT DETECT)
== END 2016-12-02 15:16 | disposition home or self-care (01) ==
LOC: ER 11:39
DX: B37.3 Candidiasis of vulva and vagina (principal); N76.0 Acute vaginitis; B96.89 Other specified bacterial agents as the cause of diseases classified elsewhere; D21.9 Benign neoplasm of connective and other soft tissue, unspecified; R10.2 Pelvic and perineal pain; Z87.59 Personal history of other complications of pregnancy, childbirth and the puerperium; Z98.51 Tubal ligation status; Z91.040 Latex allergy status
CPT/HCPCS: 99284; 96372; 87210; 87491; 87591; 76830; J3490; J0696